=== PATIENT | male | born 1955 | race African-American/Black ===

== ENCOUNTER 2017-05-26 00:47 | Emergency (ER) | payer OTHER ==
[~2017-05-26] VITALS: Ht 167.6 cm; Wt 104.3 kg
[~2017-05-26 00:47] MED LIST: FLEXERIL10 MG PO; MOTRIN600 MG PO; PERCOCET 325 MG1 TA2 PO
[2017-05-26 00:52] VITALS: BP 172/96
[2017-05-26] MEDS ORDERED: AMLODIPINE BESYL5 M1 PO (01:10)
[2017-05-26] MEDS ORDERED: PROMETHAZINE-D118 ML PO (01:46)
[2017-05-26] MEDS ORDERED: IBUPROFEN600 M1 PO (01:46)
[2017-05-26] MEDS ORDERED: PROAIR HFA8.5 GM INH (01:46)
[2017-05-26] MEDS ORDERED: AMOXICILLIN875 M1 PO (01:46)
[2017-05-26] MEDS ORDERED: PREDNISONE20 M1 PO (01:46)
--- NOTE | 2017-05-26 01:48 | ED INFLUENZA/URI COMPLAINT ---
History of Present Illness General Chief Complaint: General Adult Stated Complaint: COUGH, SORE THROAT PER PT Source: patient, old records Exam Limitations: no limitations Vital Signs & Intake/Output Vital Signs & Intake/Output Vital Signs Date Time Temp Pulse Resp B/P B/P Pulse O2 O2 Flow FiO2 Mean Ox Delivery Rate 05/26 0052 98.0 73 20 172/96 98 Room Air Allergies Coded Allergies: NO KNOWN ALLERGIES (07/03/13) Reconcile Medications Albuterol Sulfate (Proair Hfa) 90 MCG HFA.AER.AD 2 PUF INH Q4-6 PRN PRN bronchitis Amlodipine Besylate 5 MG TABLET 1 TAB PO DAILY HIGH BLOOD PRESSURE (Reported) Amoxicillin 875 MG TABLET 1 TAB PO BID bronchitis Ibuprofen 600 MG TABLET 1 TAB PO Q6PRN PRN pain with food Prednisone 20 MG TABLET 1 TAB PO BID bronchospasm Promethazine/Dextromethorphan (Promethazine-Dm Syrup) 6.25 MG-15 MG/5 ML SYRUP 5 ML PO Q4P PRN cough Triage Note: PT HERE WITH C/O SORE THROAT X A "FEW WEEKS". PT REPORTS [facility]ISIT[facility] AND NOT FEELING GOOD SINCE. PT REPORTS HAVING A COUGH AND TAKING COUGH MEDS AND TYLENOL WITH EFFECT UNTIL IT"WEARS OFF". PT STATES THAT A WEEK AGO HE HAD A FEVER BECAUSE HE WOKE UP IN SWEAT. Triage Nurses Notes Reviewed? yes Onset: 3 weeks Duration: week(s):, constant, continues in ED Timing: recent history Severity: moderate Prior Episodes/Possible Cause: illness exposure No Modifying Factors: none Associated Symptoms: cough, fever/chills, nasal congestion, sore throat HPI: 3 weeks prior to admission after visiting sister at snf patient reports developing congestion productive cough myalgia fever chills. He denies chest pain shortness of breath headache dysuria rash bleeding nausea vomiting diarrhea abdominal pain. Past History Travel History Traveled to [place] past 21 day No Medical History Any Pertinent Medical History? 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 No Review of Systems Review of Systems Constitutional: Reports: see HPI, chills, fever, malaise. EENTM: Reports: see HPI, nasal congestion, throat pain. Respiratory: Reports: see HPI, cough, sputum production. Cardiovascular: Reports: no symptoms. GI: Reports: no symptoms. Genitourinary: Reports: no symptoms. Musculoskeletal: Reports: no symptoms. Skin: Reports: no symptoms. Neurological/Psychological: Reports: no symptoms. Hematologic/Endocrine: Reports: no symptoms. Immunologic/Allergic: Reports: no symptoms. All Other Systems: Reviewed and Negative Physical Exam Physical Exam General Appearance: well developed/nourished, alert, awake, anxious, mild distress, obese Head: atraumatic, normal appearance Eyes: Bilateral: normal appearance, PERRL, EOMI. Ears, Nose, Throat: moist mucous membrane, nasal congestion, pharyngeal erythema Neck: normal inspection, supple, full range of motion, trachea midline, lymphadenopathy (R), lymphadenopathy (L) Respiratory: normal breath sounds, chest non-tender, no respiratory distress, quiet respiration, lungs clear Cardiovascular: regular rate/rhythm, normal peripheral pulses, norml femoral pulses equa Peripheral Pulses: 4+ carotid (R), 4+ carotid (L) Gastrointestinal: normal bowel sounds, soft, non-tender, no organomegaly Back: normal inspection, normal range of motion Extremities: normal inspection, normal capillary refill, normal range of motion, no edema, no ligament instability Neurologic/Psych: no motor/sensory deficits, awake, alert, oriented x 3, normal gait, normal mood/affect, 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 Skin: intact, normal color, warm/dry Lymphatic: adenopathy Core Measures Sepsis Present: No Sepsis Focused Exam Completed? No Progress Differential Diagnosis: influenza, otitis, pneumonia, pharyngitis, sinusitis Plan of Care: Orders Procedure Date/time Status RAPID VIRAL INFLUENZA A 05/26 102 Complete THROAT CULTURE W/QUICK STREP 05/26 102 Active Microbiology 05/26 104 NASOPHARYN: Influenza Virus A & B Rapid Smear - COMP Initial ED EKG: none Departure Departure Time of Disposition: 143 Disposition: HOME OR SELF CARE Condition: Stable Clinical Impression Primary Impression: Bronchitis Referrals: EleniRachid gonzalez MD (PCP/Family) Departure Forms: Customer Survey General Discharge Information Prescriptions: Current Visit Scripts Amoxicillin 1 TAB PO BID #20 TAB Albuterol Sulfate (Proair Hfa) 2 PUF INH Q4-6 PRN PRN bronchitis #1 INHAL Promethazine/Dextromethorphan (Promethazine-Dm Syrup) 5 ML PO Q4P PRN cough #120 ML Prednisone 1 TAB PO BID #10 TAB Ibuprofen 1 TAB PO Q6PRN PRN pain #50 TAB with food
== END 2017-05-26 01:59 ==
LOC: ERH 00:47
DX: J40 Bronchitis, not specified as acute or chronic (principal)
CPT/HCPCS: 87804; 87804-59